=== PATIENT | male | born 1940 | race Caucasian/White ===

== ENCOUNTER 2018-07-30 16:41 | Observation (INO) ==
[2018-07-30 18:02] LABS: Baso % (Auto) 0.2 % (0.0-2.0); Eos # (Auto) 0.1 th/mm3 (0.0-0.4); Hematocrit 47.8 % (39.0-51.0); Hemoglobin 16.7 gm/dL (13.0-17.0); Lymph # (Auto) 1.5 th/mm3 (1.0-4.8); Mean Corpuscular HGB Conc 34.9 % (32.0-36.0); Mean Corpuscular Volume 97.3 fL (80.0-100.0); Mean Platelet Volume 7.8 fL (7.0-11.0); Mono # (Auto) 0.8 th/mm3 (0.0-0.9); Mono % (Auto) 11.4 % (0.0-8.0); Neut # (Auto) 4.5 th/mm3 (1.8-7.7); Neut % (Auto) 65.4 % (16.0-70.0); Platelet Count 267 th/mm3 (150-450); Red Blood Count 4.91 mil/mm3 (4.50-5.90); Red Cell Distribution Width 13.1 % (11.6-17.2); White Blood Count 6.9 th/mm3 (4.0-11.0)
[2018-07-30 18:20] LABS: Alanine Aminotransferase 25 U/L (12-78); Anion Gap 7 meq/L (5-15); Aspartate Aminotransferase 19 U/L (15-37); Blood Urea Nitrogen 8 mg/dL (7-18); Calcium 8.6 mg/dL (8.5-10.1); Carbon Dioxide 29.6 meq/L (21.0-32.0); Chloride 104 meq/L (98-107); Glomerular Filtration Rate 74 mL/min (>89); Glucose,Random 89 mg/dL (74-106); Potassium 4.1 meq/L (3.5-5.1); Sodium 141 meq/L (136-145)
[2018-07-30 18:23] LABS: Alkaline Phosphatase 85 U/L (45-117); Total Protein 7.4 g/dL (6.4-8.2)
--- NOTE | 2018-07-30 18:45 | XR ---
EXAM DATE: 07/30/2018 6:25 PM EDT AGE/SEX: 78 years / Male INDICATIONS: Chest pain. Patient states he has been experiencing numbness from the right side of his face down to the right side of his chest for 2 days. CLINICAL DATA: This is the patient's initial encounter. Patient reports that signs and symptoms have been present for 2 days and indicates a pain score of 0/10. MEDICAL/SURGICAL HISTORY: None. None. COMPARISON: [facility], XR RIBS W/ PA CHEST, RIGHT, 06/21/2017. . FINDINGS: Trace atelectasis/scarring seen of both lung bases. No pneumonic infiltrate seen. No pleural effusion or pneumothorax. Heart size stable, within normal limits. CONCLUSION: Trace bibasilar atelectasis/scarring. Electronically signed by: Mir Espinal MD 07/30/2018 6:44 PM EDT
[2018-07-30 18:48] LABS: Bilirubin,Urine Negative (Negative); Clarity,Urine Clear (Clear); Color,Urine Yellow (Yellw/Straw); Glucose,Urine (UA) Negative (Negative); Leukocyte Esterase,Urine Negative (Negative); Nitrite,Urine Negative (Negative); Specific Gravity,Urine 1.008 (1.002-1.035)
[2018-07-30 19:03] LABS: Creatine Kinase 73 U/L (39-308)
--- NOTE | 2018-07-30 19:09 | CT ---
EXAM DATE: 07/30/2018 6:29 PM EDT AGE/SEX: 78 years / Male INDICATIONS: Right side facial numbness CLINICAL DATA: This is the patient's initial encounter. Patient reports that signs and symptoms have been present for 1 day and indicates a pain score of 0/10. MEDICAL/SURGICAL HISTORY: . Prostate disorder . Broken mandible RADIATION DOSE: 38.61 CTDI (mGy) COMPARISON: No prior exams available for comparison. TECHNIQUE: CT of the head without contrast. Using automated exposure control and adjustment of the mA and/or kV according to patient size, radiation dose was kept as low as reasonably achievable to ob tain optimal diagnostic quality images. DICOM format image data is available electronically for revi ew and comparison. FINDINGS: Cerebrum: The ventricles are normal for age. No evidence of midline shift, mass lesion, hemorrhage or acute infarction. No extraaxial fluid collections are seen. Posterior Fossa: The cerebellum and brainstem are intact. The 4th ventricle is midline. The cerebe llopontine angle is unremarkable. Extracranial: The visualized portion of the orbits is intact. Skull: The calvaria is intact. No evidence of skull fracture. CONCLUSION: Negative noncontrast head CT. . Electronically signed by: Mir Espinal MD 07/30/2018 7:07 PM EDT
[2018-07-30 19:11] LABS: Activated Partial Thrombo Time 27.2 sec (24.3-30.1); Prothrombin Time 10.4 sec (9.8-11.6)
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
[2018-07-30] MEDS ORDERED: Sodium Chloride 0.9% 2 ML Flush PRN IV.FLUSH (21:16)
[2018-07-30] MEDS: Sod Chloride 0.9% Inj 1,000 ML IV.CONT SCH (21:26)
--- NOTE | 2018-07-30 21:45 | P.HP ---
History of Present Illness Service: [facility] Primary Care Physician: haseeb johnson History of Present Illness: 78-year-old male with a past medical history significant for BPH and anxiety presents to the emergency department for evaluation of right facial numbness times 1 day. The patient reports in addition to his face being numb he also has had intermittent blurry vision. He denies any weakness. No slurred speech , dysarthria or word finding difficulties. No difficulty with ambulation or hand fountain pen nibs inspector strength. No headaches. Upon further discussion with the patient, he also states that approximately 1 week ago he had a syncopal episode while [place]. He denies any chest pain or shortness of breath. No abdominal pain. No nausea/vomiting/diarrhea. No fever /chills. Review of Systems All other systems reviewed negative except as stated in HPI PMFSH - History History Provided By: Patient - Medical History Medical History: Medical History (Last Reviewed 07/30/18 @ 21:39 by Dee Dee Nunez MD) GERD (gastroesophageal reflux disease) Prostate disorder - Surgical History Surgical History: Surgical History (Last Updated 07/30/18 @ 21:40 by Dee Dee Nunez MD) History of hand surgery Hx of eye surgery Hx of knee surgery - Family History Family History: Family History (Last Updated 07/30/18 @ 21:41 by Dee Dee Nunez MD) Other Breast cancer - Tobacco History Second Hand Smoke Exposure: No Tobacco Use In Past 30 Days: No Smoking Status: Former smoker Tobacco Type: Cigarettes - Alcohol History How Often Do You Have a Drink Containing Alcohol: 2 to 4 times a month - Substance Use History Substance History: No History of Abuse - Immunization History Tetanus Immunization: >5 Years Hx Influenza Vaccine This Season: No Medications and Allergies Active Medications: Active Medications Aspirin (Aspirin) 325 mg PO DAILY [facility] Sodium Chloride (Ns Inj) 1,000 mls @ 70 mls/hr IV.CONT .[id number] [facility] Last Admin: 07/30/18 21:26 Dose: 70 mls/hr Pantoprazole Sodium (Protonix) 40 mg PO DAILY RUPESH Sodium Chloride (Ns Flush) 2 ml IV.FLUSH BID RUPESH Sodium Chloride (Ns Flush) 2 ml IV.FLUSH PRN PRN PRN Reason: FLUSH AFTER USING IV ACCESS Tamsulosin HCl (Flomax) 0.4 mg PO DAILY [facility] Allergies Allergy/AdvReac Type Severity Reaction Status Date / Time No Known Allergies Allergy Unverified 07/30/18 18:17 Home Medications Medication Instructions Recorded Confirmed Type aspirin 81 mg PO DAILY 07/30/18 07/30/18 History esomeprazole magnesium [Nexium] 40 mg PO DAILY 07/30/18 07/30/18 History lorazepam 1 mg PO HS 07/30/18 07/30/18 History multivitamin 1 tab PO DAILY 07/30/18 07/30/18 History tamsulosin [Flomax] 0.4 mg PO DAILY 07/30/18 07/30/18 History Exam Vital signs: Vital Signs 07/30/18 16:48 07/30/18 18:20 07/30/18 19:06 Temperature 98 F 97.7 F Pulse Rate 77 86 69 Respiratory Rate 22 16 23 Blood Pressure 123/78 173/80 H 185/88 H Pulse Oximetry 99 100 97 07/30/18 21:26 Temperature Pulse Rate 79 Respiratory Rate 19 Blood Pressure 175/89 H Pulse Oximetry 95 Intake & Output 07/30/18 07/30/18 07/31/18 06:59 18:59 06:59 Weight 86.183 kg Narrative: Gen.: No acute distress Head: Normocephalic. Atraumatic. EENT: Pupils equal round and reactive to light. Nose without drainage. Airway intact. Throat without injection. Cardiovascular: Regular rate and rhythm. No murmurs, rubs or gallops. Respiratory: Lungs clear to auscultation bilaterally. No wheezes or rhonchi. Abdomen: Soft, nontender, nondistended. No peritoneal signs. Musculoskeletal: No gross deformities. No edema. Skin: No obvious rashes or erythema. Neuro: L nerves II through XII intact. Strength 5/5 throughout. Normal speech. No visual changes at this time. Right-sided facial numbness from eye to upper lip. Results - Labs CBC & Chem 7: 07/30/18 17:30 07/30/18 17:30 Labs: Laboratory Results - last 24 hr 07/30/18 07/30/18 07/30/18 17:30 17:30 17:30 WBC 6.9 RBC 4.91 Hgb 16.7 Hct 47.8 MCV 97.3 MCH 34.0 MCHC 34.9 RDW 13.1 Plt Count 267 MPV 7.8 Neut % (Auto) 65.4 Lymph % (Auto) 21.0 White % (Auto) 11.4 H Eos % (Auto) 2.0 Baso % (Auto) 0.2 Neut # (Auto) 4.5 Lymph # (Auto) 1.5 White # (Auto) 0.8 Eos # (Auto) 0.1 Baso # (Auto) 0.0 WBC Differential . Differential Comment Auto diff final PT INR APTT Sodium 141 Potassium 4.1 Chloride 104 Carbon Dioxide 29.6 Anion Gap 7 BUN 8 Creatinine 0.97 Estimated GFR 74 L Random Glucose 89 Calcium 8.6 Total Bilirubin 0.4 AST 19 ALT 25 Alkaline Phosphatase 85 Total Creatine Kinase 73 Cancelled Troponin I Less than 0.02 L Cancelled Total Protein 7.4 Albumin 4.0 Urine Color Urine Clarity Urine pH Ur Specific [place] Urine Protein Urine Glucose (UA) Urine Ketones Urine Occult Blood Urine Nitrate Urine Bilirubin Urine Urobilinogen Ur Leukocyte Esterase Urine WBC Micro UA Comment Ur Microscopic Review Urine Culture Comments 07/30/18 07/30/18 17:45 18:50 WBC RBC Hgb Hct MCV MCH MCHC RDW Plt Count MPV Neut % (Auto) Lymph % (Auto) White % (Auto) Eos % (Auto) Baso % (Auto) Neut # (Auto) Lymph # (Auto) White # (Auto) Eos # (Auto) Baso # (Auto) WBC Differential Differential Comment PT 10.4 INR 1.0 APTT 27.2 Sodium Potassium Chloride Carbon Dioxide Anion Gap BUN Creatinine Estimated GFR Random Glucose Calcium Total Bilirubin AST ALT Alkaline Phosphatase Total Creatine Kinase Troponin I Total Protein Albumin Urine Color Yellow Urine Clarity Clear Urine pH 6.0 Ur Specific [place] 1.008 Urine Protein Negative Urine Glucose (UA) Negative Urine Ketones Negative Urine Occult Blood Negative Urine Nitrate Negative Urine Bilirubin Negative Urine Urobilinogen Less than 2 Ur Leukocyte Esterase Negative Urine WBC Less than 1 Micro UA Comment Culture not ind Ur Microscopic Review Not Reportable Urine Culture Comments Culture not ind - Imaging Impressions Chest X-Ray 07/30/18 18:25 CONCLUSION: Trace bibasilar atelectasis/scarring. Head CT 07/30/18 18:25 CONCLUSION: Negative noncontrast head CT. . Caprini VTE Risk Assessment Caprini VTE Risk Assessment: Moderate/High Risk (score >= 2) Caprini Risk Assessment Model: Point Value = 1 Point Value = 2 Point Value = 3 Point Value = 5 Age 41-60 Minor surgery BMI > 25 kg/m2 Swollen legs Varicose veins or History of unexplained or recurrent spontaneous Oral contraceptives or hormone replacement Sepsis (< 1 month) Serious lung disease, including pneumonia (< 1 month) Abnormal pulmonary function Acute myocardial infarction Congestive heart failure (< 1 month) History of inflammatory bowel disease Medical patient at bed rest Age 61-74 Arthroscopic surgery Major open surgery (> 45 min) Laparoscopic surgery (> 45 min) Malignancy Confined to bed (> 72 hours) Immobilizing plaster cast Central venous access Age >= 75 History of VTE Family history of VTE Factor V Leiden Prothrombin [id number] Lupus anticoagulant Anticardiolipin antibodies Elevated serum homocysteine Heparin-induced thrombocytopenia Other congenital or acquired thrombophilia Stroke (< 1 month) Elective arthroplasty Hip, pelvis, or leg fracture Acute spinal cord injury (< 1 month) Prophylaxis Regimen: Total Risk Factor Score Risk Level Prophylaxis Regimen 0-1 Low Early ambulation 2 Moderate Order ONE of the following: *Sequential Compression Device (SCD) *Heparin 5000 units SQ BID 3-4 Higher Order ONE of the following medications: *Heparin 5000 units SQ TID *Enoxaparin/Lovenox 40 mg SQ daily (WT < 150 kg, CrCl > 30 mL/min) *Enoxaparin/Lovenox 30 mg SQ daily (WT < 150 kg, CrCl > 10-29 mL/min) *Enoxaparin/Lovenox 30 mg SQ BID (WT < 150 kg, CrCl > 30 mL/min) AND/OR *Sequential Compression Device (SCD) 5 or more Highest Order ONE of the following medications: *Heparin 5000 units SQ TID (Preferred with Epidurals) *Enoxaparin/Lovenox 40 mg SQ daily (WT < 150 kg, CrCl > 30 mL/min) *Enoxaparin/Lovenox 30 mg SQ daily (WT < 150 kg, CrCl > 10-29 mL/min) *Enoxaparin/Lovenox 30 mg SQ BID (WT < 150 kg, CrCl > 30 mL/min) AND *Sequential Compression Device (SCD) Assessment and Plan - Plan Assessment/plan: 1. TIA/CVA Head CT negative MRI/MRA brain pending Carotid ultrasound pending Neurology consulted, appreciate assistance Aspirin 2. Syncope Unclear etiology Carotid ultrasound, echo pending 3. BPH Continue home Flomax FEN N.p.o. Electrolytes: Monitor and replete as needed NS at 70 cc/hour Holding pharmacologic anticoagulation for possible CVA
--- NOTE | 2018-07-30 23:38 | US ---
EXAM DATE: 07/30/2018 12:00 AM EDT AGE/SEX: 78 years / Male INDICATIONS: Trans ischemic attack. CLINICAL DATA: This is the patient's initial encounter. Patient reports that signs and symptoms have been present for 2 days and indicates a pain score of 1/10. MEDICAL/SURGICAL HISTORY: Gastroesophageal reflux disease. Prostate disorder. . Hand surgery. Eye surgery. Knee surgery. COMPARISON: No prior exams available for comparison. VELOCITY PARAMETERS: ICA/CCA Ratio: Right 1.28 , Left 2.31 ICA: Right 104 cm/sec, Left 137 cm/sec CCA: Right 82 cm/sec, Left 59 cm/sec ECA: Right 79 cm/sec, Left 92 cm/sec Vertebral: Right 55 cm/sec antegrade, Left 27 cm/sec antegrade FINDINGS: Right Carotid: No significant plaque is visualized.The waveforms are within normal limits. Left Carotid: Mild arteriosclerotic plaque is visualized. The waveforms are within normal limits. Other: None. CONCLUSION: 1. Right Internal Carotid Artery: No significant stenosis or atherosclerotic plaque is visualized. 2. Left Internal Carotid Artery: Findings indicate 50-69% stenosis. However, this is likely due to increased tortuosity in the distal ICA. Suspect there is less than 50% stenosis. If there is continue d clinical concern, CTA examination may be performed for further evaluation. Electronically signed by: Keith Daley MD 07/30/2018 11:36 PM EDT
[2018-07-31 02:42] LABS: Bilirubin,Urine Negative (Negative); Clarity,Urine Clear (Clear); Color,Urine Yellow (Yellw/Straw); Glucose,Urine (UA) Negative (Negative); Leukocyte Esterase,Urine Negative (Negative); Mucus,Urine Few /lpf (Occasional); Nitrite,Urine Negative (Negative)
[2018-07-31 07:48] LABS: Baso % (Auto) 0.3 % (0.0-2.0); Eos # (Auto) 0.1 th/mm3 (0.0-0.4); Eos % (Auto) 1.4 % (0.0-4.0); Hemoglobin 16.8 gm/dL (13.0-17.0); Lymph # (Auto) 1.5 th/mm3 (1.0-4.8); Lymph % (Auto) 20.1 % (9.0-44.0); Mean Corpuscular HGB Conc 35.8 % (32.0-36.0); Mean Corpuscular Hemoglobin 34.4 pg (27.0-34.0); Mean Corpuscular Volume 96.2 fL (80.0-100.0); Mean Platelet Volume 8.1 fL (7.0-11.0); Mono # (Auto) 0.8 th/mm3 (0.0-0.9); Mono % (Auto) 10.3 % (0.0-8.0); Neut # (Auto) 5.1 th/mm3 (1.8-7.7); Neut % (Auto) 67.9 % (16.0-70.0); Platelet Count 260 th/mm3 (150-450); Red Blood Count 4.88 mil/mm3 (4.50-5.90); Red Cell Distribution Width 12.9 % (11.6-17.2); White Blood Count 7.5 th/mm3 (4.0-11.0)
[2018-07-31 08:09] LABS: Calcium 8.6 mg/dL (8.5-10.1); Carbon Dioxide 25.3 meq/L (21.0-32.0); Potassium 3.7 meq/L (3.5-5.1)
[2018-07-31 08:12] LABS: Chol/HDL Ratio 3.3 Ratio; HDL Cholesterol 45.4 mg/dL (40.0-60.0)
--- NOTE | 2018-07-31 08:33 | MB ---
cc: Femi Cloud MD DATE: 07/31/2018 HISTORY OF PRESENT ILLNESS: An 78-year-old right-handed man with peptic ulcer disease many years ago. He takes a baby aspirin a day. He has otherwise been very healthy. No new medications. About a week and a half ago, he was driving his golf cart when he passed out for about 30 seconds, he thinks without any warning. No chest pain, palpitations or headaches. He did not wet himself. He woke up, was a little groggy. He was driven home, and then 2 days ago he noticed that he had some numbness and did not feel quite on the right side of his face. REVIEW OF SYSTEMS: He denies any hypertension, diabetes, hypercholesterolemia, UT, CABG, cardiac arrhythmia, stent, angioplasty, atrial fibrillation, Coumadin, renal, hepatic, or pulmonary disease, thyroid disease, lupus, cancer, seizure or stroke. SOCIAL HISTORY: He is not a smoker, occasionally has a glass of wine. Lives by himself. FAMILY HISTORY: Positive for cancer in his mother Negative for seizure or stroke. earlier this year and in 12/2017. PAST MEDICAL HISTORY: As above. Also, he had a retinal tear in the right eye in the past year. There are no new vision changes associated with this. MEDICATIONS AT HOME: 1. Nexium. 2. Ativan 1 at bedtime. 3. Multivitamin. 4. Flomax. 5. Aspirin 81 mg. MEDICATIONS HERE: His aspirin was increased to 325 mg. PHYSICAL EXAMINATION: VITAL SIGNS: EKG showed sinus rhythm with a PAC. Afebrile, 88, 18, 132/72 to 185/88. Initial blood pressure was 123/78. NECK: There were no carotid bruits. CARDIAC: I did not detect a murmur. Heart was regular rate and rhythm. NEUROLOGIC: Pupils are equal. Extraocular movements intact without nystagmus. Face is symmetric with normal sensation, especially on the right side. Tongue was midline. No drift. Normal strength in upper and lower extremities bilaterally. Has had some surgery in his hands palmar aspect before for what appeared to be contractures. DTRs 1+ and symmetric throughout. Toes are downgoing bilaterally. Pinprick is intact throughout the face, arm and leg bilaterally. He is not ataxic on [id number]. Speech is fluent. He is not aphasic. Gives a good history. LABORATORY DATA: CBC was normal. UA is negative. Basic metabolic profile was normal. LFTs normal. CPK, troponin normal. LDL is pending. Albumin is normal. Coagulation studies are normal. CAT scan of the brain was negative. Carotid ultrasound suggested possibly some disease on the left versus just a tortuous artery. Chest x-ray, some atelectasis. IMPRESSION: Syncope. I would have cardiology see him, probably a cardiogenic syncope about a week and a half ago. The right facial symptoms could have been a small stroke about a week after that, i.e., 2 days ago, and for now we will put him on Plavix. Check an MRI of the brain and MRA [place] and neck and echocardiogram, a Holter, some additional blood work. He overall looks well neurologically, and in fact, his exam is intact at this time. We will do an EEG and check some standing blood pressures. He should also hold off driving until further notice. MD LIU Fajardo/roseanna , 07:39 AM , 07:46 AM
--- NOTE | 2018-07-31 08:36 | P.CONCA ---
History of Present Illness Service: Cardiology Consult date: 07/31/18 Reason for Consult: Syncope Primary Care Provider: haseeb johnson History of Present Illness: This is an 78-year-old male with past medical history significant for benign prostatic hypertrophy but no history of underlying coronary disease. Patient is currently getting MRI imaging and not available for discussion. History was obtained primarily from chart records. Apparently patient presented to the emergency department for evaluation of right facial numbness for about the last day. He is also had intermittent episodes of blurry vision. There is no description for dysarthria. Patient also states approximately 1 week ago he was [place] golf [place] when he had a syncopal episode. No further description in chart records as to what transpired during that time, or if there was prodrome symptoms. Electrocardiogram was unremarkable. Telemetry unremarkable. Neurology consulted us for further evaluation. Review of Systems Patient is not available for review of systems [facility] - History History Provided By: Patient - Medical History Medical History: Medical History (Last Reviewed 07/30/18 @ 21:39 by Dee Dee Nunez MD) GERD (gastroesophageal reflux disease) Prostate disorder - Surgical History Surgical History: Surgical History (Last Updated 07/30/18 @ 21:40 by Dee Dee Nunez MD) History of hand surgery Hx of eye surgery Hx of knee surgery - Family History Family History: Family History (Last Updated 07/30/18 @ 21:41 by Dee Dee Nunez MD) Other Breast cancer - Tobacco History Second Hand Smoke Exposure: No Tobacco Use In Past 30 Days: No Smoking Status: Never smoker Tobacco Type: Cigarettes - Alcohol History How Often Do You Have a Drink Containing Alcohol: 2 to 4 times a month - Substance Use History Substance History: No History of Abuse - Travel History Recent Travel in the [place] Within the Last 8 Weeks: No Recent Travel Out of the Country Within the Last 8 Weeks: No - Immunization History Tetanus Immunization: >5 Years Hx Influenza Vaccine This Season: No Medications and Allergies Active Medications: Active Medications Aspirin (Aspirin) 325 mg PO DAILY RUPEHS Clopidogrel Bisulfate (Plavix) 75 mg PO DAILY RUPESH Sodium Chloride (Ns Inj) 1,000 mls @ 70 mls/hr IV.CONT .[id number] RUPESH Last Admin: 07/30/18 21:26 Dose: 70 mls/hr Lorazepam (Ativan) 0.5 mg PO ONCE ONE Stop: 10/04/18 20:01 Pantoprazole Sodium (Protonix) 40 mg PO DAILY RUPESH Sodium Chloride (Ns Flush) 2 ml IV.FLUSH BID RUPESH Sodium Chloride (Ns Flush) 2 ml IV.FLUSH PRN PRN PRN Reason: FLUSH AFTER USING IV ACCESS Tamsulosin HCl (Flomax) 0.4 mg PO DAILY RUPESH Allergies Allergy/AdvReac Type Severity Reaction Status Date / Time No Known Allergies Allergy Unverified 07/30/18 18:17 Home Medications Medication Instructions Recorded Confirmed Type aspirin 81 mg PO DAILY 07/30/18 07/30/18 History esomeprazole magnesium [Nexium] 40 mg PO DAILY 07/30/18 07/30/18 History lorazepam 1 mg PO HS 07/30/18 07/30/18 History multivitamin 1 tab PO DAILY 07/30/18 07/30/18 History tamsulosin [Flomax] 0.4 mg PO DAILY 07/30/18 07/30/18 History Exam Vital signs: Vital Signs 07/30/18 16:48 07/30/18 18:20 07/30/18 19:06 Temperature 98 F 97.7 F Pulse Rate 77 86 69 Respiratory Rate 22 16 23 Blood Pressure 123/78 173/80 H 185/88 H Pulse Oximetry 99 100 97 07/30/18 21:26 07/30/18 23:27 07/31/18 01:09 Temperature 97.4 F L 97.7 F Pulse Rate 79 76 75 Respiratory Rate 19 18 20 Blood Pressure 175/89 H 168/74 H 155/85 H Pulse Oximetry 95 98 93 L 07/31/18 03:09 07/31/18 05:09 07/31/18 07:25 Temperature 98.1 F 98.2 F Pulse Rate 74 88 81 Respiratory Rate 18 18 20 Blood Pressure 168/78 H 132/72 183/93 H Pulse Oximetry 95 Intake & Output 07/30/18 07/31/18 07/31/18 18:59 06:59 18:59 Weight 86.183 kg 86.18 kg Other: Date of Last Bowel Movement 07/30/18 Weight On Admission 86.183 kg Results 07/31/18 06:50 07/31/18 06:50 Cardiac Enzymes 07/30/18 07/30/18 Range/Units 17:30 17:30 AST 19 (15-37) U/L Troponin I Less than 0.02 L Cancelled (0.02-0.05) ng/mL Coagulation 07/30/18 Range/Units 18:50 PT 10.4 (9.8-11.6) sec APTT 27.2 (24.3-30.1) sec Lipids 07/31/18 Range/Units 06:50 Triglycerides 123 (42-150) mg/dL Cholesterol 150 (120-200) mg/dL HDL Cholesterol 45.4 (40.0-60.0) mg/dL Cholesterol/HDL Ratio 3.30 Ratio CBC 07/30/18 07/31/18 Range/Units 17:30 06:50 WBC 6.9 7.5 (4.0-11.0) th/mm3 RBC 4.91 4.88 (4.50-5.90) mil/mm3 Hgb 16.7 16.8 (13.0-17.0) gm/dL Hct 47.8 47.0 (39.0-51.0) % Plt Count 267 260 (150-450) th/mm3 Neut # (Auto) 4.5 5.1 (1.8-7.7) th/mm3 Lymph # (Auto) 1.5 1.5 (1.0-4.8) th/mm3 [place] # (Auto) 0.8 0.8 (0.0-0.9) th/mm3 Eos # (Auto) 0.1 0.1 (0.0-0.4) th/mm3 Baso # (Auto) 0.0 0.0 (0.0-0.2) th/mm3 Comprehensive Metabolic Panel 07/30/18 07/31/18 Range/Units 17:30 06:50 Sodium 141 139 (136-145) meq/L Potassium 4.1 3.7 (3.5-5.1) meq/L Chloride 104 105 (98-107) meq/L Carbon Dioxide 29.6 25.3 (21.0-32.0) meq/L BUN 8 8 (7-18) mg/dL Creatinine 0.97 1.02 (0.60-1.30) mg/dL Calcium 8.6 8.6 (8.5-10.1) mg/dL AST 19 (15-37) U/L ALT 25 (12-78) U/L Alkaline Phosphatase 85 (45-117) U/L Total Protein 7.4 (6.4-8.2) g/dL Albumin 4.0 (3.4-5.0) g/dL Intake and Output 07/30/18 07/31/18 07/31/18 22:59 06:59 14:59 Other: Date of Last Bowel Movement 07/30/18 Weight 86.18 kg Weight On Admission 86.183 kg - Imaging and Cardiology Imaging: Impressions Carotid Doppler Study 07/30/18 00:00 CONCLUSION: 1. Right Internal Carotid Artery: No significant stenosis or atherosclerotic plaque is visualized. 2. Left Internal Carotid Artery: Findings indicate 50-69% stenosis. However, this is likely due to increased tortuosity in the distal ICA. Suspect there is less than 50% stenosis. If there is continued clinical concern, CTA examination may be performed for further evaluation. Chest X-Ray 07/30/18 18:25 CONCLUSION: Trace bibasilar atelectasis/scarring. Head CT 07/30/18 18:25 CONCLUSION: Negative noncontrast head CT. . Assessment and Plan - Assessment (1) Syncope Code(s): R55 - Syncope and collapse Status: Acute - Plan This is an 78-year-old gentleman without significant past medical history who presents now with symptoms consistent with possible transient ischemic attack. Will await further evaluation for neurological imaging to determine if there is any objective evidence for stroke. Patient also describes apparent syncopal episode. Will have to have a further discussion with the patient regarding any prodrome symptoms or what occurred at that time. 2D echocardiogram is pending. Electrocardiogram shows no QT prolongation, Brugada pattern, left ventricular hypertrophy pattern. There is no high degree atrioventricular block present. Will determine if there is any underlying structural heart disease on echocardiography. Anticipate that patient will require a event monitor which we can coordinate on discharge if workup is essentially negative. If patient has evidence for stroke, given his age is more likely to be atheroembolic than it is to be cardioembolic, and therefore do not feel strongly he would need a MORGAN. We will have a discussion with neurology should this be the case. Medical management per neurology.
[2018-07-31] MEDS ORDERED: Gadobutrol PF 10 MMOL/10 ML Vial (for RAD) IV.SIG ONE (08:59)
--- NOTE | 2018-07-31 09:03 | MR ---
EXAM DATE: 07/31/2018 8:02 AM EDT AGE/SEX: 78 years / Male INDICATIONS: Slurred speech. Right facial numbness. CLINICAL DATA: This is the patient's subsequent encounter. Patient reports that signs and symptoms h ave been present for 2 days and indicates a pain score of 0/10. MEDICAL/SURGICAL HISTORY: Gastroesophageal reflux disease. BPH . Bilateral hand surgery, jaw s urgery, Rt eye surgery, Lt knee surery COMPARISON: [facility], CT HEAD W/O CONTRAST, 07/30/2018. . TECHNIQUE: 3D [id number] MRA was performed. Source images, multiplanar STS MIP, and 3D volum e MIP reconstructions were reviewed. FINDINGS: There is excellent visualization of the major intracranial arteries out to the second-order branch ve ssels. There is no evidence for aneurysm, vessel truncation or stenosis, and no evidence for vascula r malformation. There is a patent right posterior communicating artery supplying the right posterior cerebral artery. CONCLUSION: 1. No evidence of intracranial stenosis, occlusion or aneurysm. 2. Patent right posterior communicating artery supplying the right posterior cerebral artery. Electronically signed by: John Rodriguez MD 07/31/2018 9:02 AM EDT
[2018-07-31] MEDS: Aspirin 325 MG Tablet PO SCH (09:31)
--- NOTE | 2018-07-31 09:36 | MR ---
EXAM DATE: 07/31/2018 8:02 AM EDT AGE/SEX: 78 years / Male INDICATIONS: Slurred speech. Right sided facial numbness. CLINICAL DATA: This is the patient's subsequent encounter. Patient reports that signs and symptoms h ave been present for 2 days and indicates a pain score of 0/10. MEDICAL/SURGICAL HISTORY: Gastroesophageal reflux disease. BPH . Bilateral hand surgery, jaw s urgery, Rt eye surgery, Lt knee surery COMPARISON: [facility] [place], MRA HEAD W/O CONTRAST, 07/31/2018. C, CT HEAD W/O CONTRAST, 07/30/2018. . TECHNIQUE: Multiplanar, multisequence examination of the brain was performed without and with 10 ml G adavist (gadobutrol) contrast as a single exam dose. FINDINGS: Cerebrum: Mild cerebral atrophy is noted. No evidence of midline shift, mass lesion, hemorrhage or a cute infarction. No extraaxial fluid collections are seen. Scattered old tiny lacunar infarcts are noted within the bilateral basal ganglia. The pituitary gland and suprasellar cistern are normal in c onfiguration. White Matter: Mild periventricular and subcortical white matter small vessel ischemic changes are no cecilia. Posterior Fossa: The cerebellum and brainstem are intact. The 4th ventricle is midline. The cerebel lopontine angle is unremarkable. The cerebellar tonsils are normal in position. Diffusion Imaging: No focal areas of restricted diffusion are seen. No evidence of acute infarction . Extracranial: The visualized portions of the orbits and paranasal sinuses are unremarkable. Post Contrast: No abnormal areas of parenchymal or dural enhancement. No evidence of blood-brain ba rrier breakdown. CONCLUSION: 1. No acute infarct, acute hemorrhage, mass effect or extra-axial fluid collections. 2. Mild periventricular and subcortical white matter small vessel ischemic changes. 3. Scattered old tiny lacunar infarcts within the bilateral basal ganglia. 4. Mild cerebral atrophy. Electronically signed by: John Rodriguez MD 07/31/2018 9:35 AM EDT
--- NOTE | 2018-07-31 09:37 | MR ---
EXAM DATE: 07/31/2018 8:02 AM EDT AGE/SEX: 78 years / Male INDICATIONS: . Slurred speech, right sided facial numbness. CLINICAL DATA: This is the patient's subsequent encounter. Patient reports that signs and symptoms h ave been present for 2 days and indicates a pain score of 0/10. MEDICAL/SURGICAL HISTORY: Gastroesophageal reflux disease. BPH . Bilateral hand surgery, jaw s urgery, Rt eye surgery, Lt knee surery COMPARISON: No prior exams available for comparison. TECHNIQUE: 10 ml Gadavist (gadobutrol) contrast infused MRA (single exam dose) of the extracranial circulation was performed using a neurovascular coil. Postprocessing was performed, including rotati ng sub-volume maximum intensity projections of each carotid artery, rotating full-volume maximum inte nsity projections of both carotid arteries, sagittal and coronal sliding thin-slab reformations of ea ch carotid artery, and left oblique sliding thin-slab reformation through the aortic arch to include the origin of the arch branch vessels. FINDINGS: Aortic Arch : There is a three-vessel origin of the great vessels from the aorta. No evidence of o stial narrowing. Right Carotid : The common carotid artery is intact. The carotid bulb has a normal configuration wi thout ulceration or narrowing. The internal carotid artery lumen is smooth without stenosis. The ex ternal carotid artery is intact. Left Carotid : The common carotid artery is intact. The carotid bulb has a normal configuration wit hout ulceration or narrowing. The internal carotid artery lumen is smooth without stenosis. The ext ernal carotid artery is intact. Vertebrals : The vertebral arteries have a symmetric diameter. No stenotic lesions are seen. CONCLUSION: 1. Negative MRA Carotids. Percent stenosis is calculated using the diameter of the stenotic region over the diameter of the nor mal distal internal carotid artery Electronically signed by: John Rodriguez MD 07/31/2018 9:36 AM ANGELLA
[2018-07-31 09:51] LABS: Free T4 (Free Thyroxine) 0.76 ng/dL (0.76-1.46); Thyroid Stimulating Hormone 1.58 uIU/mL (0.358-3.740)
[2018-07-31] MEDS: Sodium Chloride 0.9% 2 ML Flush BID IV.FLUSH SCH ×2 (10:33→20:44)
--- NOTE | 2018-07-31 11:15 | P.PN ---
Subjective Interval history: Follow-up for right facial numbness. Patient reports improvement of his symptoms, however still has a "weird" feeling of the right side of his face, described as mild numbness and some tingling. He denies any significantly blurred vision, however this year he did have surgery on his right retina. He denies any current headache, however has noticed a mild right frontotemporal headache occasionally over the past few weeks, now subsided. He denies any facial droop or slurred speech. Denies any unilateral extremity numbness/ weakness. Denies any gait abnormality. Denies any chest pain or shortness of breath. He has no other medical complaints at this time. Physical Exam Vital signs: Vital Signs 07/30/18 16:48 07/30/18 18:20 07/30/18 19:06 Temperature 98 F 97.7 F Pulse Rate 77 86 69 Respiratory Rate 22 16 23 Blood Pressure 123/78 173/80 H 185/88 H Pulse Oximetry 99 100 97 07/30/18 21:26 07/30/18 23:27 07/31/18 01:09 Temperature 97.4 F L 97.7 F Pulse Rate 79 76 75 Respiratory Rate 19 18 20 Blood Pressure 175/89 H 168/74 H 155/85 H Pulse Oximetry 95 98 93 L 07/31/18 03:09 07/31/18 05:09 07/31/18 07:25 Temperature 98.1 F 98.2 F Pulse Rate 74 88 81 Respiratory Rate 18 18 20 Blood Pressure 168/78 H 132/72 183/93 H Pulse Oximetry 95 07/31/18 09:05 Temperature Pulse Rate 78 Respiratory Rate Blood Pressure Pulse Oximetry Intake & Output 07/30/18 07/31/18 07/31/18 18:59 06:59 18:59 Weight 86.183 kg 86.18 kg Other: Date of Last Bowel Movement 07/30/18 Weight On Admission 86.183 kg Narrative: GENERAL: Well-nourished, well-developed pleasant elderly male patient in [facility]. SKIN: Warm and dry. No rash. HEENT: Normocephalic. Atraumatic. Pupils equal and round. Mucous membranes pink and moist. CARDIOVASCULAR: Regular rate and rhythm. No murmur appreciated. RESPIRATORY: No accessory muscle use. Clear to auscultation. Breath sounds equal bilaterally. GASTROINTESTINAL: Abdomen soft, non-tender, nondistended. Normoactive bowel sounds x4. MUSCULOSKELETAL: No obvious deformities. Extremities without clubbing, cyanosis , or edema. NEUROLOGICAL: Awake and alert. No obvious cranial nerve deficits. Motor grossly within normal limits. 5/5 strength in bilateral upper and lower extremities. Normal speech. No facial droop, lid lag, tongue deviation. Very minimal decreased sensation of the right cheek compared to the left, however still does have sensation to light touch. PSYCHIATRIC: Appropriate mood and affect; insight and judgment normal. Results - Labs CBC & Chem 7: 07/31/18 06:50 07/31/18 06:50 Laboratory Results - last 24 hr 07/30/18 07/30/18 07/30/18 17:30 17:30 17:30 WBC 6.9 RBC 4.91 Hgb 16.7 Hct 47.8 MCV 97.3 MCH 34.0 MCHC 34.9 RDW 13.1 Plt Count 267 MPV 7.8 Neut % (Auto) 65.4 Lymph % (Auto) 21.0 [place] % (Auto) 11.4 H Eos % (Auto) 2.0 Baso % (Auto) 0.2 Neut # (Auto) 4.5 Lymph # (Auto) 1.5 [place] # (Auto) 0.8 Eos # (Auto) 0.1 Baso # (Auto) 0.0 WBC Differential . Differential Comment Auto diff final ESR PT INR APTT Sodium 141 Potassium 4.1 Chloride 104 Carbon Dioxide 29.6 Anion Gap 7 BUN 8 Creatinine 0.97 Estimated GFR 74 L Random Glucose 89 Calcium 8.6 Total Bilirubin 0.4 AST 19 ALT 25 Alkaline Phosphatase 85 Total Creatine Kinase 73 Cancelled Troponin I Less than 0.02 L Cancelled Total Protein 7.4 Albumin 4.0 Triglycerides Cholesterol LDL Cholesterol, Calc HDL Cholesterol Cholesterol/HDL Ratio Vitamin B12 TSH Free T4 Urine Color Urine Clarity Urine pH Ur Specific [place] Urine Protein Urine Glucose (UA) Urine Ketones Urine Occult Blood Urine Nitrate Urine Bilirubin Urine Urobilinogen Ur Leukocyte Esterase Urine RBC Urine WBC Urine Mucus Micro UA Comment Ur Microscopic Review Urine Culture Comments 07/30/18 07/30/18 07/31/18 17:45 18:50 02:25 WBC RBC Hgb Hct MCV MCH MCHC RDW Plt Count MPV Neut % (Auto) Lymph % (Auto) [place] % (Auto) Eos % (Auto) Baso % (Auto) Neut # (Auto) Lymph # (Auto) [place] # (Auto) Eos # (Auto) Baso # (Auto) WBC Differential Differential Comment ESR PT 10.4 INR 1.0 APTT 27.2 Sodium Potassium Chloride Carbon Dioxide Anion Gap BUN Creatinine Estimated GFR Random Glucose Calcium Total Bilirubin AST ALT Alkaline Phosphatase Total Creatine Kinase Troponin I Total Protein Albumin Triglycerides Cholesterol LDL Cholesterol, Calc HDL Cholesterol Cholesterol/HDL Ratio Vitamin B12 TSH Free T4 Urine Color Yellow Yellow Urine Clarity Clear Clear Urine pH 6.0 6.0 Ur Specific [place] 1.008 1.010 Urine Protein Negative Negative Urine Glucose (UA) Negative Negative Urine Ketones Negative Negative Urine Occult Blood Negative Negative Urine Nitrate Negative Negative Urine Bilirubin Negative Negative Urine Urobilinogen Less than 2 Less than 2 Ur Leukocyte Esterase Negative Negative Urine RBC 1 Urine WBC Less than 1 Less than 1 Urine Mucus Few H Micro UA Comment Culture not ind Culture not ind Ur Microscopic Review Not Reportable Not Reportable Urine Culture Comments Culture not ind Culture not ind 07/31/18 07/31/18 07/31/18 06:50 06:50 06:50 WBC 7.5 RBC 4.88 Hgb 16.8 Hct 47.0 MCV 96.2 MCH 34.4 H MCHC 35.8 RDW 12.9 Plt Count 260 MPV 8.1 Neut % (Auto) 67.9 Lymph % (Auto) 20.1 [place] % (Auto) 10.3 H Eos % (Auto) 1.4 Baso % (Auto) 0.3 Neut # (Auto) 5.1 Lymph # (Auto) 1.5 [place] # (Auto) 0.8 Eos # (Auto) 0.1 Baso # (Auto) 0.0 WBC Differential . Differential Comment Auto diff final ESR 1 PT INR APTT Sodium 139 Potassium 3.7 Chloride 105 Carbon Dioxide 25.3 Anion Gap 9 BUN 8 Creatinine 1.02 Estimated GFR 70 L Random Glucose 103 Calcium 8.6 Total Bilirubin AST ALT Alkaline Phosphatase Total Creatine Kinase Troponin I Total Protein Albumin Triglycerides 123 Cholesterol 150 LDL Cholesterol, Calc 80 HDL Cholesterol 45.4 Cholesterol/HDL Ratio 3.30 Vitamin B12 TSH Free T4 Urine Color Urine Clarity Urine pH Ur Specific [place] Urine Protein Urine Glucose (UA) Urine Ketones Urine Occult Blood Urine Nitrate Urine Bilirubin Urine Urobilinogen Ur Leukocyte Esterase Urine RBC Urine WBC Urine Mucus Micro UA Comment Ur Microscopic Review Urine Culture Comments 07/31/18 06:50 WBC RBC Hgb Hct MCV MCH MCHC RDW Plt Count MPV Neut % (Auto) Lymph % (Auto) [place] % (Auto) Eos % (Auto) Baso % (Auto) Neut # (Auto) Lymph # (Auto) [place] # (Auto) Eos # (Auto) Baso # (Auto) WBC Differential Differential Comment ESR PT INR APTT Sodium Potassium Chloride Carbon Dioxide Anion Gap BUN Creatinine Estimated GFR Random Glucose Calcium Total Bilirubin AST ALT Alkaline Phosphatase Total Creatine Kinase Troponin I Total Protein Albumin Triglycerides Cholesterol LDL Cholesterol, Calc HDL Cholesterol Cholesterol/HDL Ratio Vitamin B12 443 TSH 1.580 Free T4 0.76 Urine Color Urine Clarity Urine pH Ur Specific [place] Urine Protein Urine Glucose (UA) Urine Ketones Urine Occult Blood Urine Nitrate Urine Bilirubin Urine Urobilinogen Ur Leukocyte Esterase Urine RBC Urine WBC Urine Mucus Micro UA Comment Ur Microscopic Review Urine Culture Comments - Imaging Impressions Carotid Doppler Study 07/30/18 00:00 CONCLUSION: 1. Right Internal Carotid Artery: No significant stenosis or atherosclerotic plaque is visualized. 2. Left Internal Carotid Artery: Findings indicate 50-69% stenosis. However, this is likely due to increased tortuosity in the distal ICA. Suspect there is less than 50% stenosis. If there is continued clinical concern, CTA examination may be performed for further evaluation. Chest X-Ray 07/30/18 18:25 CONCLUSION: Trace bibasilar atelectasis/scarring. Head CT 07/30/18 18:25 CONCLUSION: Negative noncontrast head CT. . Head MRA 07/31/18 00:00 CONCLUSION: 1. No evidence of intracranial stenosis, occlusion or aneurysm. 2. Patent right posterior communicating artery supplying the right posterior cerebral artery. Neck MRA 07/31/18 00:00 CONCLUSION: 1. Negative MRA Carotids. Percent stenosis is calculated using the diameter of the stenotic region over the diameter of the normal distal internal carotid artery Head MRI 07/31/18 07:37 CONCLUSION: 1. No acute infarct, acute hemorrhage, mass effect or extra-axial fluid collections. 2. Mild periventricular and subcortical white matter small vessel ischemic changes. 3. Scattered old tiny lacunar infarcts within the bilateral basal ganglia. 4. Mild cerebral atrophy. - Procedures None. Assessment and Plan - Plan 78-year-old male with a past medical history significant for BPH and anxiety presents to the emergency department for evaluation of right facial numbness Right facial numbness: Concern for TIA/CVA. -Head CT reviewed and unremarkable -Brain MRI reviewed, no acute findings; mild white matter small vessel ischemic changes; scattered old tiny lacunar infarcts within the basal ganglia -Head/neck MRA reviewed and unremarkable -Echocardiogram with EF 50-55% -PT/OT/ST consulted, no physical therapy needs at discharge -Neurology consulted, added Plavix to the patient's aspirin -Checking EEG -Holter monitor ordered -Lipid panel wnl, hemoglobin A1c pending Syncope: Occurred 1 week ago while driving his golf cart -Head CT, brain MRI, head/neck MRA as above all unremarkable -Echocardiogram unremarkable -Holter ordered -Given IV fluid hydration -Orthostatics mildly positive although not hypotensive, SBP dropped from 179 to 153 upon standing -Cardiology consulted, recommending event monitor that can be done as outpatient BPH: Chronic -Continue patient's Flomax DVT prophylaxis: SCDs Discharge Planning: Discharge pending completion of workup with EEG and Holter. Will need neurology and cardiology clearance prior to discharge.
--- NOTE | 2018-07-31 14:17 | ECHRPT ---
Indication: SYNCOPE CONCLUSIONS Normal left ventricular size. Wall thickness is normal. The left ventricular systolic function is low normal with an estimated ejection fraction in the rang e of 50- 55%. Mitral annular calcification is present. The pulmonary valve is not well visualized. BP: / HR: Rhythm: Technical Quality: FINDINGS LEFT VENTRICLE Normal left ventricular size. Wall thickness is normal. The left ventricular systolic function is low normal with an estimated ejection fraction in the rang e of 50- 55%. RIGHT VENTRICLE Normal right ventricular size and systolic function. LEFT ATRIUM The left atrial size is normal. RIGHT ATRIUM The right atrial size is normal. ATRIAL SEPTUM Normal atrial septal thickness without atrial level shunting by limited color doppler interrogation. AORTA The aortic root and proximal ascending aorta are normal in size on limited imaging. MITRAL VALVE Mitral annular calcification is present. AORTIC VALVE Trileaflet aortic valve. No aortic valve stenosis or regurgitation. TRICUSPID VALVE Structurally normal tricuspid valve. No tricuspid valve stenosis or regurgitation. PULMONARY VALVE The pulmonary valve is not well visualized. VESSELS The inferior vena cava is normal in size. PERICARDIUM No pericardial effusion. Glen Samaniego MD, FACC (Electronically Signed) Final Date:31 July 2018 14:16
--- NOTE | 2018-07-31 15:47 | ECG ---
Date Performed: 07/30/2018 Time Performed: 17:34:21 PTAGE: 78 years EKG: Sinus rhythm NORMAL ECG PREVIOUS TRACING : 11/02/2008 11.51 Since the previous tracing, no significant change noted DOCTOR: Kecia Hinkle Interpretating Date/Time 07/31/2018 15:46:08
[2018-07-31] MEDS: Sod Chloride 0.9% Inj 1,000 ML IV.CONT SCH (16:41)
[2018-07-31 17:52] LABS: Hemoglobin A1c 5.7 % (4.3-6.0)
[2018-07-31] MEDS ORDERED: LORazepam 0.5 MG Tablet PO ONE (20:00)
--- NOTE | 2018-07-31 20:24 | MG ---
cc: Femi Cloud MD ELECTROENCEPHALOGRAM NUMBER: [id number] CLINICAL HISTORY: Passed out driving a golf cart. DESCRIPTION: A symmetric 10 Hz, 60 microvolt posterior rhythm is seen. Hyperventilation was performed without change in the background. Photic stimulation was performed, which showed what appears to be some muscle artifact bifrontally at the beginning of almost every string of photic stimulation, but no definite epileptiform or seizure activity is noted. Other times, a lot of muscle artifact as photic stimulation starts. No hemisphere asymmetry is noted. Some photoelectric effect may be seen bifrontally with photic stimulation. IMPRESSION: Essentially normal electroencephalogram. Some slight changes with photic stimulation that I think are normal and mostly artifactual. No hemisphere asymmetries are noted. No seizure is noted. MD LIU Fajardo/home , 07:45 PM , 07:48 PM
[2018-07-31] MEDS ORDERED: Melatonin 5 MG Tablet PO ONE (21:44)
[2018-08-01] MEDS: Sod Chloride 0.9% Inj 1,000 ML IV.CONT SCH (02:01)
--- NOTE | 2018-08-01 07:08 | P.PNNEU ---
Subjective Subjective Comments: sr no new co Active Medications: Active Medications Aspirin (Aspirin) 325 mg PO DAILY [facility] Last Admin: 07/31/18 09:31 Dose: 325 mg Clopidogrel Bisulfate (Plavix) 75 mg PO DAILY [facility] Last Admin: 07/31/18 09:32 Dose: 75 mg Sodium Chloride (Ns Inj) 1,000 mls @ 70 mls/hr IV.CONT .[id number] [facility] Last Admin: 08/01/18 02:01 Dose: Not Given Pantoprazole Sodium (Protonix) 40 mg PO DAILY [facility] Last Admin: 07/31/18 09:31 Dose: 40 mg Sodium Chloride (Ns Flush) 2 ml IV.FLUSH BID [facility] Last Admin: 07/31/18 20:44 Dose: 2 ml Sodium Chloride (Ns Flush) 2 ml IV.FLUSH PRN PRN PRN Reason: FLUSH AFTER USING IV ACCESS Tamsulosin HCl (Flomax) 0.4 mg PO DAILY [facility] Last Admin: 07/31/18 09:31 Dose: 0.4 mg Allergies/Adverse Reactions: Allergies Allergy/AdvReac Type Severity Reaction Status Date / Time No Known Allergies Allergy Unverified 07/30/18 18:17 Physical Exam Vital signs: Vital Signs 07/31/18 07:25 07/31/18 09:05 07/31/18 11:59 Temperature 97.6 F Pulse Rate 81 78 76 Respiratory Rate 20 18 Blood Pressure 183/93 H 146/82 H Pulse Oximetry 95 95 07/31/18 16:01 07/31/18 19:52 08/01/18 01:40 Temperature 98.4 F 98.4 F 98.7 F Pulse Rate 77 80 78 Respiratory Rate 20 16 16 Blood Pressure 145/82 H 156/80 H 139/84 Pulse Oximetry 95 94 L 95 08/01/18 05:00 Temperature 98.5 F Pulse Rate 78 Respiratory Rate 20 Blood Pressure 128/65 Pulse Oximetry Intake & Output 07/31/18 08/01/18 08/01/18 18:59 06:59 18:59 Intake Total 1000 / 1000 Balance 1000 / 1000 Intake: IV 1000 / 1000 NS Inj 1,000 ML @ 70 mls/hr IV. 1000 / 1000 CONT .[id number] [facility] Rx#:[id number] Other: Date of Last Bowel Movement 07/30/18 Narrative: face sym nl speech says face feels little better nl gait speech nl Objective Laboratory Results - last 24 hr 07/31/18 07/31/18 07/31/18 06:50 06:50 06:50 WBC 7.5 RBC 4.88 Hgb 16.8 Hct 47.0 MCV 96.2 MCH 34.4 H MCHC 35.8 RDW 12.9 Plt Count 260 MPV 8.1 Neut % (Auto) 67.9 Lymph % (Auto) 20.1 [place] % (Auto) 10.3 H Eos % (Auto) 1.4 Baso % (Auto) 0.3 Neut # (Auto) 5.1 Lymph # (Auto) 1.5 [place] # (Auto) 0.8 Eos # (Auto) 0.1 Baso # (Auto) 0.0 WBC Differential . Differential Comment Auto diff final ESR Sodium 139 Potassium 3.7 Chloride 105 Carbon Dioxide 25.3 Anion Gap 9 BUN 8 Creatinine 1.02 Estimated GFR 70 L Random Glucose 103 Hemoglobin A1c 5.7 Calcium 8.6 Triglycerides 123 Cholesterol 150 LDL Cholesterol, Calc 80 HDL Cholesterol 45.4 Cholesterol/HDL Ratio 3.30 Vitamin B12 TSH Free T4 07/31/18 07/31/18 06:50 06:50 WBC RBC Hgb Hct MCV MCH MCHC RDW Plt Count MPV Neut % (Auto) Lymph % (Auto) [place] % (Auto) Eos % (Auto) Baso % (Auto) Neut # (Auto) Lymph # (Auto) [place] # (Auto) Eos # (Auto) Baso # (Auto) WBC Differential Differential Comment ESR 1 Sodium Potassium Chloride Carbon Dioxide Anion Gap BUN Creatinine Estimated GFR Random Glucose Hemoglobin A1c Calcium Triglycerides Cholesterol LDL Cholesterol, Calc HDL Cholesterol Cholesterol/HDL Ratio Vitamin B12 443 TSH 1.580 Free T4 0.76 Review/Management - Review/Management Plan: imp echo neg mri/a/a neg standing bp ok eeg nl holter pend ldl nl cards to do event monitor can dc on plavix by me and fu cards
[2018-08-01] MEDS: Sodium Chloride 0.9% 2 ML Flush BID IV.FLUSH SCH (08:10)
[2018-08-01] MEDS: Aspirin 325 MG Tablet PO SCH (08:10)
--- NOTE | 2018-08-01 08:10 | P.PN ---
Subjective Interval history: Follow-up for transient right facial numbness, concern for TIA. Patient reports his right facial numbness has mostly resolved. He denies any other medical complaints including no headache, blurred vision, unilateral numbness/ weakness, speech difficulties, chest pain, shortness of breath, or abdominal complaints. He adamantly wants to go home. He is cleared for discharge by neurology and cardiology. Plavix has been started by the neurologist, patient verbalized understanding. Also discussed no driving until cleared by neurology , patient verbalized understanding. Physical Exam Vital signs: Vital Signs 07/31/18 09:05 07/31/18 11:59 07/31/18 16:01 Temperature 97.6 F 98.4 F Pulse Rate 78 76 77 Respiratory Rate 18 20 Blood Pressure 146/82 H 145/82 H Pulse Oximetry 95 95 07/31/18 19:52 08/01/18 01:40 08/01/18 05:00 Temperature 98.4 F 98.7 F 98.5 F Pulse Rate 80 78 78 Respiratory Rate 16 16 20 Blood Pressure 156/80 H 139/84 128/65 Pulse Oximetry 94 L 95 Intake & Output 07/31/18 08/01/18 08/01/18 18:59 06:59 18:59 Intake Total 1000 / 1000 Balance 1000 / 1000 Intake: IV 1000 / 1000 NS Inj 1,000 ML @ 70 mls/hr IV. 1000 / 1000 CONT .[id number] [facility] Rx#:[id number] Other: Date of Last Bowel Movement 07/30/18 Narrative: GENERAL: Well-nourished, well-developed pleasant elderly male patient in [facility]. SKIN: Warm and dry. No rash. HEENT: Normocephalic. Atraumatic. Pupils equal and round. Mucous membranes pink and moist. CARDIOVASCULAR: Regular rate and rhythm. No murmur appreciated. RESPIRATORY: No accessory muscle use. Clear to auscultation. Breath sounds equal bilaterally. GASTROINTESTINAL: Abdomen soft, non-tender, nondistended. Normoactive bowel sounds x4. MUSCULOSKELETAL: No obvious deformities. Extremities without clubbing, cyanosis , or edema. NEUROLOGICAL: Awake and alert. 5/5 strength in bilateral upper and lower extremities. Normal speech. No facial droop, lid lag, tongue deviation. Bilateral facial sensation equal and intact today. PSYCHIATRIC: Appropriate mood and affect; insight and judgment normal. Results - Labs CBC & Chem 7: 07/31/18 06:50 07/31/18 06:50 Laboratory Results - last 24 hr 07/31/18 07/31/18 07/31/18 06:50 06:50 06:50 ESR 1 Hemoglobin A1c 5.7 Triglycerides 123 Cholesterol 150 LDL Cholesterol, Calc 80 HDL Cholesterol 45.4 Cholesterol/HDL Ratio 3.30 Vitamin B12 TSH Free T4 07/31/18 06:50 ESR Hemoglobin A1c Triglycerides Cholesterol LDL Cholesterol, Calc HDL Cholesterol Cholesterol/HDL Ratio Vitamin B12 443 TSH 1.580 Free T4 0.76 - Imaging Impressions Carotid Doppler Study 07/30/18 00:00 CONCLUSION: 1. Right Internal Carotid Artery: No significant stenosis or atherosclerotic plaque is visualized. 2. Left Internal Carotid Artery: Findings indicate 50-69% stenosis. However, this is likely due to increased tortuosity in the distal ICA. Suspect there is less than 50% stenosis. If there is continued clinical concern, CTA examination may be performed for further evaluation. Chest X-Ray 07/30/18 18:25 CONCLUSION: Trace bibasilar atelectasis/scarring. Head CT 07/30/18 18:25 CONCLUSION: Negative noncontrast head CT. . Head MRA 07/31/18 00:00 CONCLUSION: 1. No evidence of intracranial stenosis, occlusion or aneurysm. 2. Patent right posterior communicating artery supplying the right posterior cerebral artery. Neck MRA 07/31/18 00:00 CONCLUSION: 1. Negative MRA Carotids. Percent stenosis is calculated using the diameter of the stenotic region over the diameter of the normal distal internal carotid artery Head MRI 07/31/18 07:37 CONCLUSION: 1. No acute infarct, acute hemorrhage, mass effect or extra-axial fluid collections. 2. Mild periventricular and subcortical white matter small vessel ischemic changes. 3. Scattered old tiny lacunar infarcts within the bilateral basal ganglia. 4. Mild cerebral atrophy. - Procedures None. Assessment and Plan - Plan 78-year-old male with a past medical history significant for BPH and anxiety presents to the emergency department for evaluation of right facial numbness Right facial numbness: Concern for TIA/CVA. -Head CT reviewed and unremarkable -Brain MRI reviewed, no acute findings; mild white matter small vessel ischemic changes; scattered old tiny lacunar infarcts within the basal ganglia -Head/neck MRA reviewed and unremarkable -Echocardiogram with EF 50-55% -PT/OT/ST consulted, no physical therapy needs at discharge -Neurology consulted, added Plavix to the patient's aspirin -EEG unremarkable -Holter monitor completed, results pending at discharge -Lipid panel wnl, hemoglobin A1c 5.7 -Cleared for discharge by neurology, given prescription for Plavix, discussed risk with the patient -No driving, discussed with the patient Syncope: Occurred 1 week ago while driving his golf cart -Head CT, brain MRI, head/neck MRA as above all unremarkable -Echocardiogram unremarkable -Holter completed, results pending at discharge -Given IV fluid hydration, no further episodes of lightheadedness or syncope -Orthostatics mildly positive although not hypotensive, SBP dropped from 179 to 153 upon standing -Cardiology consulted, discussed with Dr. Samaniego, recommending event monitor that can be done as outpatient, cleared for discharge BPH: Chronic -Continue patient's Flomax DVT prophylaxis: SCDs Discharge Planning: Discharge patient to home Condition on discharge: Stable Heart healthy diet as tolerated Ad Teresa activity Rx written: Plavix 75 mg daily Follow-up with primary care physician, neurologist Dr. Cloud, cardiology Dr. Samaniego
[2018-08-01 08:14] VITALS: BP 141/76; PULSE 72; RESP 24; TEMP 97.7; O2SAT 94
--- NOTE | 2018-08-03 10:13 | HM ---
Date Performed: 07/31/2018 Time Performed: 11:04:00 HOOKUP DATE: 07/31/18 11:04:00 AM Lyn[facility]ay ANALYSIS START TIME: 07/31/2018 11:09:00 AM ANALYSIS END TIME: 08/01/2018 7:43:15 AM PATIENT AGE: 78 PATIENT HEIGHT: 71 PATIENT WEIGHT: 189 DRUG LIST: ROOM H88 PATIENT DIAGNOSIS: CVA TEST NARRATIVE: The patient's average heart rate was 83 BPM. Heart rates greater than 120 B PM were noted 3% of the time. No episodes of bradycardia were noted. No pauses exceeding 2.0 sec onds were noted. 299 ventricular ectopics, which represented < 1% of the total beat count, were n oted. The highest ventricular ectopic frequency occurred from 11:00 AM to 12:00 PM Lyndsay. During this time 39 VE(s) occurred. Ventricular ectopics were observed as 299 isolated beat(s) only. No couple ts or runs were noted. 25087 supraventricular ectopics, which represented 16% of the total beat c ount, were noted. The highest supraventricular ectopic frequency occurred from 01:00 PM to 02:00 PM Lyndsay. During this time 1422 SVE(s) occurred. No episodes of ST depression (defined as -1.0 mm or more) were noted in channel 1. No episodes of ST depression (defined as -1.0 mm or more) were noted in channel 2. No episodes of ST depression (defined as -1.0 mm or more) were noted in channel 3. NO DIARY WAS GIVEN TO PATIENT TEST INTERPRETATION: Sinus rhythm Multiple PACs Very short bursts of SVT No ventricular tachycardia No pause There was no entry in the diary Signed by : Maribell Da Silva
== END 2018-08-01 09:26 | disposition home or self-care (01) ==
LOC: NEDA 16:41 → NEPE 16:41 → NEPHCDU 21:56
PROVIDERS: ADMIT Internal Medicine; ATTEND Internal Medicine